=== PATIENT | male | born 1970 | race Caucasian/White ===

== ENCOUNTER → 2021-12-14 | Outpatient (CLI) | payer BC ==
--- NOTE | 2021-12-15 00:50 | MR ---
EXAMINATION TYPE: MR knee LT wo con DATE OF EXAM: 12/14/2021 COMPARISON: None HISTORY: Left inner knee pain, locking, and swelling for 2 years. History of multiple knee surgeries. Multiplanar multiecho imaging of the left knee with no contrast. There is 3 cm area of increased signal in the medial tibial condyle consistent with edema and bone br uise. There is similar area in the subchondral medial femoral condyle measuring 1.5 cm. There is some edema in the intercondylar distal femur. There is complete tear of the anterior cruciate ligament. T he posterior cruciate ligament is intact. The collateral ligaments are intact. There is some narrowin g of the medial joint space of the knee. There is spurring of the medial femoral and tibial condyles. There is small vertical tear through the anterior horn of the lateral meniscus. There is some thinni ng of the lateral meniscus. There is thinning of the medial meniscus. There is probably some resectio n of portions of the anterior horn of the medial meniscus. No definite fracture line seen. There is s ome linear defect through the proximal tibia probably from reconstructive surgery. IMPRESSION: Complete tear anterior cruciate ligament. Small joint effusion. 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 Narrowing of the medial joint space. There is vertical tear of the anterior horn of the lateral meniscus and thinning of the medial meniscus with probably postsurgical changes. There are areas of i ncreased signal in the medial femoral and tibial condyles consistent with bone bruise and edema. No f racture line seen. Edema in the intercondylar distal femur is probably postsurgical changes.
== END | disposition home or self-care (01) ==
LOC: RADMRIMAIN 19:54
PROVIDERS: ATTEND Orthopaedic Surgery
DX: M25.562 Pain in left knee (principal); M17.12 Unilateral primary osteoarthritis, left knee; S83.512A Sprain of anterior cruciate ligament of left knee, initial encounter